=== PATIENT | male | born 1955 | race African-American/Black ===

== ENCOUNTER 2016-06-06 19:36 | Emergency (ER) | payer MEDICAID ==
[~2016-06-06] VITALS: Ht 177.8 cm; Wt 86.0 kg
[2016-06-06 19:42] VITALS: BP 132/93
[2016-06-06] MEDS ORDERED: BACITRACIN ZINC OINT UDPKT TOP ONE (21:15)
[2016-06-06] MEDS ORDERED: LIDOCAINE HCL 1% 20ML VIAL (Pyxis) INJ MC ONE (21:15)
[2016-06-06] MEDS ORDERED: TETANUS, DIPHTHERIA, PERTUSSIS VAC/PF 0.5ML (>7YR OLD) IM ONE (21:45)
[2016-06-06] MEDS ORDERED: CEFTRIAXONE SODIUM 1 G/VIAL IM ONE (21:45)
[2016-06-06] MEDS ORDERED: KETOROLAC 60MG/2ML VIAL IM ONE (22:30)
== END 2016-06-06 23:27 | disposition home or self-care (01) ==
LOC: ER 20:56
DX: S02.2XXA Fracture of nasal bones, initial encounter for closed fracture (principal); M54.5 Low back pain; S01.21XA Laceration without foreign body of nose, initial encounter; F17.200 Nicotine dependence, unspecified, uncomplicated; Y08.89XA Assault by other specified means, initial encounter; Y93.89 Activity, other specified; Y99.8 Other external cause status; Y92.89 Other specified places as the place of occurrence of the external cause
CPT/HCPCS: 12011; 70160; 90471; 90715; 96372; 99284; J0696; J1885; J3490

== ENCOUNTER 2023-07-20 22:15 | Emergency (ER) | payer OTHER, MEDICAID ==
[~2023-07-20] VITALS: Ht 177.8 cm; Wt 87.0 kg
[2023-07-20 22:37] VITALS: RESP 20; O2SAT 100
[2023-07-21] MEDS ORDERED: LIDOCAINE HCL/PF 1% 10 MG/ML 5ML VIAL INFIL ONE
[2023-07-21] MEDS ORDERED: BACITRACIN ZINC OINT UDPKT TOP ONE
[2023-07-21] MEDS ORDERED: BO1 TP (00:08)
[2023-07-21 00:35] VITALS: BP 166/91; PULSE 65; TEMP 96.9
[2023-07-21] MEDS: IBUPROFEN 600MG TABLET PO ONE (00:40)
[2023-07-21] MEDS: TETANUS, DIPHTHERIA, PERTUSSIS VAC/PF 0.5ML (>10YR OLD) IM ONE (00:43)
== END 2023-07-21 00:47 | disposition home or self-care (01) ==
LOC: ER 22:15
DX: S81.011A Laceration without foreign body, right knee, initial encounter (principal); X58.XXXA Exposure to other specified factors, initial encounter; Y93.89 Activity, other specified; Y92.89 Other specified places as the place of occurrence of the external cause; Y99.8 Other external cause status
CPT/HCPCS: 99283; 90715; 90471; J3490

== ENCOUNTER 2023-10-11 12:49 | Emergency (ER) | payer MEDICAID, MEDICARE, OTHER ==
[~2023-10-11] VITALS: Ht 177.8 cm; Wt 87.0 kg
[~2023-10-11 12:49] MED LIST: BO1 TP
[2023-10-11 13:07] VITALS: BP 145/75; PULSE 68; RESP 16; TEMP 98.3; O2SAT 95
== END 2023-10-11 15:20 | disposition home or self-care (01) ==
LOC: ER 12:49
DX: S81.011D Laceration without foreign body, right knee, subsequent encounter (principal); Z48.02 Encounter for removal of sutures; X58.XXXD Exposure to other specified factors, subsequent encounter
CPT/HCPCS: 99281

== ENCOUNTER 2024-08-22 18:16 | Emergency (ER) | payer MEDICARE, MEDICAID ==
[~2024-08-22] VITALS: Ht 177.8 cm; Wt 82.0 kg
[2024-08-22 18:25] VITALS: O2SAT 98
[2024-08-22] MEDS: ACETAMINOPHEN 325MG TABLET PO ONE (18:56)
[2024-08-23 00:21] VITALS: BP 179/87; PULSE 60; RESP 16; TEMP 36.7; O2SAT 97
== END 2024-08-23 00:21 | disposition home or self-care (01) ==
LOC: ER 18:16
DX: S01.01XA Laceration without foreign body of scalp, initial encounter (principal); R51.9 Headache, unspecified; Y04.0XXA Assault by unarmed brawl or fight, initial encounter; Y93.89 Activity, other specified; Y92.89 Other specified places as the place of occurrence of the external cause; Y99.8 Other external cause status
CPT/HCPCS: 12002; 73030; 99284